=== PATIENT | male | born 1960 | race African-American/Black ===

== ENCOUNTER 2020-04-12 13:24 | Emergency (ER) | payer MEDICAID ==
[~2020-04-12] VITALS: Ht 167.6 cm; Wt 63.6 kg
[2020-04-12 13:28] VITALS: Ht 167.6 cm; Wt 63.6 kg
[2020-04-12 14:11] LABS: ANION GAP 11.6 mmol/L (8-16); CALCIUM 9.4 mg/dL (8.5-10.1); CARBON DIOXIDE 27.4 mmol/L (21.0-32.0); CREATININE - SERUM 1.3 mg/dL (0.6-1.3)
[2020-04-12 14:43] LABS: ALBUMIN 4.2 g/dL (3.4-5.0); BASOPHILS 0.3 % (0-2); BILIRUBIN - TOTAL 0.65 mg/dL (0.2-1.3); EOSINOPHILS 0.5 % (0-7); HEMATOCRIT 46.2 % (42.0-54.0); HEMOGLOBIN 15.1 g/dL (13.5-17.5); IMMATURE GRANULOCYTES 0.2 % (0-5); LYMPHOCYTES 34.8 % (15-50); MCH 29.8 pg (26.0-34.0); MCHC 32.7 g/dL (31.0-37.0); MCV 91.1 fL (80.0-100.0); MEAN PLATELET VOLUME 9.8 fL (7.4-10.4); MONOCYTES 7.8 % (2-11); NEUTROPHILS 56.4 % (40-80); PLATELET COUNT 452 10x3/uL (130-400); PROTEIN - SERUM 7.7 g/dL (6.4-8.2); RBC 5.07 10x6/uL (4.20-6.10); RDW 13.3 % (11.5-14.5); WBC 6.7 10x3/uL (4.8-10.8)
[2020-04-12 15:10] VITALS: BP 138/80
== END 2020-04-12 15:11 | disposition home or self-care (01) ==
LOC: D.ER 13:24
PROVIDERS: Emergency Medicine
DX: M50.30 Other cervical disc degeneration, unspecified cervical region (principal); R20.2 Paresthesia of skin

== ENCOUNTER 2020-05-23 17:15 | Emergency (ER) | payer MEDICAID ==
[~2020-05-23] VITALS: Ht 167.6 cm; Wt 66.5 kg
[2020-05-23 17:21] VITALS: Ht 167.6 cm; Wt 66.5 kg
[2020-05-23 20:20] VITALS: BP 110/82
== END 2020-05-23 20:20 | disposition home or self-care (01) ==
LOC: D.ER 17:15
DX: R51 Headache (principal); W19.XXXA Unspecified fall, initial encounter; Y93.9 Activity, unspecified; Y92.9 Unspecified place or not applicable; S09.90XA Unspecified injury of head, initial encounter

== ENCOUNTER 2021-03-17 16:03 | Emergency (ER) | payer BC ==
[~2021-03-17] VITALS: Ht 167.6 cm; Wt 66.4 kg
[2021-03-17 16:13] VITALS: BP 141/102; Ht 167.6 cm; Wt 66.4 kg
== END 2021-03-17 17:25 | disposition home or self-care (01) ==
LOC: D.ER 16:03
DX: S60.812A Abrasion of left wrist, initial encounter (principal); W54.1XXA Struck by dog, initial encounter; Y93.9 Activity, unspecified; Y92.9 Unspecified place or not applicable